=== PATIENT | female | born 1990 | race Hispanic/Latino ===

== ENCOUNTER 2021-12-09 14:31 | Outpatient (CLI) | payer OTHER, SELFPAY ==
--- NOTE | ~2021-12-09 | MR_ITS ---
EXAMINATION: MR pelvis wo/w con DATE: 12/09/2021 15:40 INDICATION: Pelvic and perineal pain. TECHNIQUE: Magnetic resonance imaging (MRI) of the pelvis was performed without and with 13 mL MultiH ance intravenous contrast. Sequences included coronal and axial T2-weighted FS FSE, axial T1-weighted FS FSE, axial LAVA, coronal FS FIESTA, coronal LAVA-flex, axial T2-weighted FSE, axial dual-echo T1- weighted FSPGR, axial FS FIESTA, axial DWI, and small [id number] sagittal, coronal, and axial T2-w eighted FSE. Postcontrast sequences included coronal LAVA-flex and a time course of axial LAVA. COMPARISON: None. FINDINGS: There are no dilated loops of bowel. The appendix is normal. The uterus is normal in morphology. The endometrial complex is normal and measures 7 mm. The junctional zone is normal in thickness. The ovar ies are normal. There is physiologic fluid in the pelvis. There are no pathologically enlarged lymph nodes. The bones are unremarkable. IMPRESSION: 1. No etiology for the patient's symptoms. Reviewed, dictated and finalized at location A. [employer]
[2021-12-09 15:01] LABS: Estimated Glomerular Filt Rate > 60
== END 2021-12-09 14:32 | disposition home or self-care (01) ==
DX: R10.2 Pelvic and perineal pain (principal); R20.0 Anesthesia of skin
CPT/HCPCS: 72197; A9577